=== PATIENT | male | born 1935 | race Caucasian/White ===

== ENCOUNTER 2017-11-29 11:40 | Inpatient (IN) | payer MEDICARE, OTHER ==
[~2017-11-29] VITALS: Ht 175.3 cm; Wt 90.0 kg
[2017-11-29] VITALS (9 sets, daily range): BP systolic 97–128; BP diastolic 45–64
[~2017-11-29 11:40] MED LIST: ADV50250 IH; ALBU8HFA PO; ATOR80TA PO; COR3.125T PO; FURO-150 PO; FURO40TA4 PO; ISOS30TA9 PO; ISOS60TA4 PO; MONT10TA24 PO; POTA10CA44 PO; TIOT18CA7 IH; carvedilol; etomidate 2mg/ml inj. ONE; potassium chloride; prednisone; rocuronium 10mg/ml inj IV ONE; spironolactone
[2017-11-29] MEDS ORDERED: fentaNYL/PF 50MCG/1 ML 2ML syringe IV ONE (11:55)
[2017-11-29] MEDS ORDERED: etomidate 2mg/ml inj. IV ONE (11:55)
[2017-11-29] MEDS ORDERED: rocuronium 10mg/ml inj IV ONE (11:55)
[2017-11-29] MEDS ORDERED: propofol 1000mg/100ml bottle 100 ML IV ONE (11:55)
[2017-11-29] MEDS ORDERED: MIDAZolam 5mg/ml 2ml vial IV ONE (11:55)
[2017-11-29] MEDS ORDERED: dexamethasone sod phosphate 10mg/ml inj IV STA (12:28)
[2017-11-29] MEDS: midazolam 100mg in NS 100ml 100 ML IV PRN ×4 (12:36→23:47)
[2017-11-29 12:37] LABS: BASOPHILS % (AUTO) 0.1 % (0-1); EOSINOPHILS # (AUTO) 0.1 X10'3 (0-0.9); EOSINOPHILS % (AUTO) 0.4 % (0-6); HEMATOCRIT 35.7 % (42.0-52.0); HEMOGLOBIN 11.6 g/dl (14.0-17.9); LYMPHOCYTES # (AUTO) 0.8 X10'3 (1.1-4.8); LYMPHOCYTES % (AUTO) 4.1 % (21-51); MEAN CORPUSCULAR HEMOGLOBIN 31.9 PG (27.0-31.0); MEAN CORPUSCULAR HGB CONC 32.6 % (33.0-36.5); MEAN PLATELET VOLUME 7.6 FL (7.4-10.4); MONOCYTES # (AUTO) 0.8 X10'3 (0-0.9); MONOCYTES % (AUTO) 3.7 % (2-12); NEUTROPHILS # (AUTO) 18.5 X10'3 (1.8-7.7); NEUTROPHILS % (AUTO) 91.7 % (42-75); PLATELET COUNT 343 X10'3 (140-440); RED BLOOD COUNT 3.64 X10'6 (4.70-6.10); RED CELL DISTRIBUTION WIDTH 13.7 % (11.5-14.5); WHITE BLOOD COUNT 20.2 X10'3 (4.5-11.0)
[2017-11-29 12:43] LABS: INR 0.9 INR; PARTIAL THROMBOPLASTIN TIME 23 SECONDS (22-32); PROTHROMBIN TIME 9.8 SECONDS (9.0-12.0)
[2017-11-29 12:51] LABS: ABG BASE EXCESS 14.9 mmol/L (-2.0-3.0); ABG HCO3 41.5 mmol/L (22.0-26.0); ABG OXYGEN SATURATION 95.6 % (95-98); ABG PCO2 (T) 59.9 mmHg (35.0-48.0); ABG PH (T) 7.458 (7.350-7.450); ABG PO2 (T) 71.7 mmHg (83-108); ALLEN'S TEST Positive; FCOHb 0.4 % (0.5-1.5); FMetHb 0.2 % (0.3-1.12); PEEP 5 cm H2O; RESPIRATORY RATE 20 b/min; TIDAL VOLUME 450 mL; TOTAL HEMOGLOBIN 12.6 G/dl (14.0-18.0)
[2017-11-29 12:58] LABS: ALANINE AMINOTRANSFERASE 18 U/L (12-78); ALBUMIN 2.2 G/DL (3.4-5.0); ALBUMIN/GLOBULIN RATIO 0.4 (1.1-1.5); ALKALINE PHOSPHATASE 80 IU/L (46-116); ANION GAP 3 (8-16); ASPARTATE AMINO TRANSFERASE 18 U/L (10-37); BILIRUBIN,TOTAL 0.3 MG/DL (0.1-1.0); BLOOD UREA NITROGEN 15 MG/DL (7-18); BUN/CREATININE RATIO 27.8 (5.4-32.0); CALCIUM 8.9 MG/DL (8.5-10.1); CHLORIDE 94 MMOL/L (99-107); CREATININE 0.54 MG/DL (0.60-1.10); GLUCOSE 179 MG/DL (70-104); POTASSIUM 4.2 MMOL/L (3.5-5.1); SODIUM 136 MMOL/L (135-145); TOTAL CARBON DIOXIDE 39.1 MMOL/L (24-32); TOTAL PROTEIN 7.1 G/DL (6.4-8.2); eGFR > 90 ML/MIN
[2017-11-29 13:10] LABS: TOTAL CELLS COUNTED 100
[2017-11-29 13:11] LABS: PLATELET ESTIMATE NORMAL; TOXIC GRANULATION 1+
[2017-11-29 13:35] LABS: CLARITY,URINE CLEAR (Clear); COLOR,URINE YELLOW (Yellow); GLUCOSE, URINE NEGATIVE (Neg); KETONES,URINE NEGATIVE (Neg); LEUKOCYTE ESTERASE ,URINE NEGATIVE (Neg); NITRITES, URINE NEGATIVE (Neg); OCCULT BLOOD,URINE NEGATIVE (Neg); PH,URINE 6.5 (4.8-8.0); PROTEIN,URINE NEGATIVE (Neg)
[2017-11-29 13:37] LABS: UA COLLECTION TYPE FOLEY CATH
[2017-11-29] MEDS ORDERED: metoclopramide 5 mg/ml inj IV PRN (13:40)
[2017-11-29] MEDS ORDERED: Neutra Phos packet PO PRN (13:40)
[2017-11-29] MEDS ORDERED: magnesium 4gm in 100ml NS 100 ML IV PRN (13:40)
[2017-11-29] MEDS ORDERED: magnesium Cl slow-release 64mg tablet PO PRN (13:40)
[2017-11-29] MEDS ORDERED: morphine 2 MG/ML inj. syringe IV PRN ×2 (13:40)
[2017-11-29] MEDS ORDERED: sodium phosphate inj. 15 MMOL in dextrose 5%-water 150 ML IV PRN (13:40)
[2017-11-29] MEDS ORDERED: ondansetron/PF 4mg/2ml inj IV PRN (13:40)
[2017-11-29] MEDS ORDERED: acetaminophen 325mg tablet PO PRN (13:40)
[2017-11-29] MEDS ORDERED: magnesium hydroxide 30ml (MOM) UD suspension PO PRN (13:40)
[2017-11-29] MEDS ORDERED: sodium phosphate inj. 30 MMOL in dextrose 5%-water 250 ML IV PRN (13:40)
[2017-11-29] MEDS: K, MAG and/or Phos replacement - Verify level? MC SCH (13:40)
[2017-11-29] MEDS ORDERED: magnesium 2GM in 50ml NS 50 ML IV PRN (13:40)
[2017-11-29] MEDS ORDERED: potassium Cl 20 mEq SR tablet PO PRN ×2 (13:40)
[2017-11-29] MEDS ORDERED: methylPREDNISolone sod succ 125mg/2ml vial IV ONE (14:00)
[2017-11-29] MEDS ORDERED: PRED5TAB PO (14:01)
[2017-11-29] MEDS ORDERED: SPIR50TA3 PO (14:01)
[2017-11-29 14:18] LABS: D-DIMER 2.16 MG/L FEU (0-0.50)
[2017-11-29] MEDS: FENTANYL-0.9 % NACL/PF 100 ML IV PRN (14:30)
[2017-11-29 14:51] LABS: ABG PCO2 (T) 63.6 mmHg (35.0-48.0); ABG PH (T) 7.406 (7.350-7.450); ABG PO2 (T) 87.5 mmHg (83-108); FCOHb 0.3 % (0.5-1.5); FMetHb 0.2 % (0.3-1.12); FO2Hb 96.5 % (94-100); MINUTE VOLUME 6 L/min; PEEP 5 cm H2O; RESPIRATORY RATE 12 b/min; RESPIRATORY RATE (OBSERVED) 12 b/min; TOTAL HEMOGLOBIN 11.9 G/dl (14.0-18.0)
[2017-11-29] MEDS: levoFLOXACIN-Levaquin 750MG/D5 150 ML IV SCH (15:05)
[2017-11-29] MEDS: CefTRIAXone 2gm/D5W 50ml ADVTG 50 ML IV SCH (15:06)
[2017-11-29] MEDS: enoxaparin 40mg/0.4ml syringe SUBCUT SCH (15:06)
[2017-11-29 15:15] LABS: OXYGEN SATURATION (MIXED VEN) 79.2 % (60-80); PO2 MIXED VENOUS (TEMP COR) 39.9 mmHg (35-46)
[2017-11-29 15:42] LABS: MAGNESIUM 2.1 MG/DL (1.5-2.4)
[2017-11-29] MEDS ORDERED: FLU VACC QS2017-18 36MOS UP/PF 60 MCG/0.5 ML SYRINGE IMVAC ONE (15:55)
[2017-11-29] MEDS ORDERED: NORepinephrine 8mg/ 250ml NS 250 ML IV SCH ×2 (15:55→16:10)
[2017-11-29] MEDS: montelukast 10mg tablet PO SCH (20:00)
[2017-11-30] VITALS (23 sets, daily range): BP systolic 98–118; BP diastolic 50–64
[2017-11-30 03:28] LABS: BASOPHILS # (AUTO) 0.4 X10'3 (0-0.2); BASOPHILS % (AUTO) 1.7 % (0-1); EOSINOPHILS % (AUTO) 0 % (0-6); HEMATOCRIT 33.3 % (42.0-52.0); HEMOGLOBIN 10.9 g/dl (14.0-17.9); LYMPHOCYTES # (AUTO) 0.9 X10'3 (1.1-4.8); LYMPHOCYTES % (AUTO) 4.4 % (21-51); MEAN CORPUSCULAR HEMOGLOBIN 31.9 PG (27.0-31.0); MEAN CORPUSCULAR HGB CONC 32.6 % (33.0-36.5); MEAN CORPUSCULAR VOLUME 97.8 FL (78-98); MEAN PLATELET VOLUME 7.4 FL (7.4-10.4); MONOCYTES # (AUTO) 0.3 X10'3 (0-0.9); MONOCYTES % (AUTO) 1.7 % (2-12); NEUTROPHILS # (AUTO) 18.6 X10'3 (1.8-7.7); NEUTROPHILS % (AUTO) 92.2 % (42-75); PLATELET COUNT 332 X10'3 (140-440); RED CELL DISTRIBUTION WIDTH 13.8 % (11.5-14.5); WHITE BLOOD COUNT 20.2 X10'3 (4.5-11.0)
[2017-11-30 03:37] LABS: PARTIAL THROMBOPLASTIN TIME 29 SECONDS (22-32); PROTHROMBIN TIME 10.8 SECONDS (9.0-12.0)
[2017-11-30 03:45] LABS: ALANINE AMINOTRANSFERASE 16 U/L (12-78); ALBUMIN 1.8 G/DL (3.4-5.0); ALBUMIN/GLOBULIN RATIO 0.4 (1.1-1.5); ALKALINE PHOSPHATASE 73 IU/L (46-116); ANION GAP -1 (8-16); ASPARTATE AMINO TRANSFERASE 13 U/L (10-37); BILIRUBIN,TOTAL 0.2 MG/DL (0.1-1.0); BLOOD UREA NITROGEN 15 MG/DL (7-18); BUN/CREATININE RATIO 27.8 (5.4-32.0); CALCIUM 8.7 MG/DL (8.5-10.1); CHLORIDE 96 MMOL/L (99-107); CREATININE 0.54 MG/DL (0.60-1.10); GLUCOSE 173 MG/DL (70-104); MAGNESIUM 2.2 MG/DL (1.5-2.4); PHOSPHORUS 3.6 MG/DL (2.3-4.5); POTASSIUM 4.4 MMOL/L (3.5-5.1); SODIUM 135 MMOL/L (135-145); TOTAL CARBON DIOXIDE 39.6 MMOL/L (24-32); TOTAL PROTEIN 6.4 G/DL (6.4-8.2); eGFR > 90 ML/MIN
[2017-11-30 04:05] LABS: ABG BASE EXCESS 13.4 mmol/L (-2.0-3.0); ABG HCO3 40.4 mmol/L (22.0-26.0); ABG OXYGEN SATURATION 92.5 % (95-98); ABG PCO2 (T) 63.4 mmHg (35.0-48.0); ABG PH (T) 7.421 (7.350-7.450); ABG PO2 (T) 60.1 mmHg (83-108); FCOHb 0.3 % (0.5-1.5); FMetHb 0.1 % (0.3-1.12); FO2Hb 92.1 % (94-100); MINUTE VOLUME 6 L/min; PATIENT TEMPERATURE 36.7; PEEP 5 cm H2O; RESPIRATORY RATE 12 b/min; RESPIRATORY RATE (OBSERVED) 12 b/min; TIDAL VOLUME 450 mL; TOTAL HEMOGLOBIN 11.7 G/dl (14.0-18.0)
[2017-11-30] MEDS: K, MAG and/or Phos replacement - Verify level? MC SCH (06:41)
[2017-11-30] MEDS: CefTRIAXone 2gm/D5W 50ml ADVTG 50 ML IV SCH (07:05)
[2017-11-30] MEDS ORDERED: potassium chloride 10mEq CAPSULE.SA PO SCH (08:00)
[2017-11-30] MEDS ORDERED: montelukast 10mg tablet PO SCH (08:00)
[2017-11-30] MEDS: FENTANYL-0.9 % NACL/PF 100 ML IV PRN (08:26)
[2017-11-30] MEDS: enoxaparin 40mg/0.4ml syringe SUBCUT SCH (08:27)
[2017-11-30] MEDS: pantoprazole 40 MG vial IV SCH (08:27)
[2017-11-30] MEDS: montelukast 10mg tablet PO SCH (08:27)
[2017-11-30] MEDS: levoFLOXACIN-Levaquin 750MG/D5 150 ML IV SCH (08:30)
[2017-11-30] MEDS ORDERED: potassium Cl oral solution 20 MEQ/15 ML PO PRN ×2 (08:52)
[2017-11-30] MEDS ORDERED: dextrose 50%-water 50ml dispensing syringe IV PRN ×2 (10:50)
[2017-11-30] MEDS ORDERED: dextrose ORAL solution 15 GM/59 ML bottle PO PRN ×2 (10:50)
[2017-11-30] MEDS ORDERED: MESSAGE TO PHARMACY PO ONE (10:50)
[2017-11-30] MEDS ORDERED: glucagon, human recombinant 1mg kit SUBCUT PRN (10:50)
[2017-11-30] MEDS: methylnaltrexone br 12mg/0.6ml inj***SubQ only SQ SCH ×2 (11:00→11:30)
[2017-11-30] MEDS: linezolid 600mg/300ml PREMIX 300 ML IV SCH ×2 (11:20→20:07)
[2017-11-30] MEDS ORDERED: NORepinephrine 8mg/ 250ml NS 250 ML IV SCH (15:55)
[2017-11-30] MEDS: midazolam 100mg in NS 100ml 100 ML IV PRN (18:05)
[2017-11-30] MEDS: insulin regular, human vial - multi-dose SQ SCH (20:11)
[2017-11-30] MEDS: Insulin Detemir pen SQ SCH (20:13)
[2017-12-01] VITALS (24 sets, daily range): BP systolic 94–130; BP diastolic 40–56
[2017-12-01] MEDS: insulin regular, human vial - multi-dose SQ SCH ×4 (02:37→20:11)
[2017-12-01 03:22] LABS: BASOPHILS % (AUTO) 0.1 % (0-1); EOSINOPHILS # (AUTO) 0.4 X10'3 (0-0.9); EOSINOPHILS % (AUTO) 1.5 % (0-6); HEMOGLOBIN 10.9 g/dl (14.0-17.9); LYMPHOCYTES # (AUTO) 1.1 X10'3 (1.1-4.8); LYMPHOCYTES % (AUTO) 4.8 % (21-51); MEAN CORPUSCULAR HEMOGLOBIN 31.7 PG (27.0-31.0); MEAN CORPUSCULAR VOLUME 96.1 FL (78-98); MEAN PLATELET VOLUME 7.2 FL (7.4-10.4); MONOCYTES # (AUTO) 0.8 X10'3 (0-0.9); MONOCYTES % (AUTO) 3.5 % (2-12); NEUTROPHILS # (AUTO) 21.5 X10'3 (1.8-7.7); NEUTROPHILS % (AUTO) 90.1 % (42-75); PLATELET COUNT 332 X10'3 (140-440); RED BLOOD COUNT 3.43 X10'6 (4.70-6.10); RED CELL DISTRIBUTION WIDTH 13.5 % (11.5-14.5); WHITE BLOOD COUNT 23.9 X10'3 (4.5-11.0)
[2017-12-01 03:36] LABS: INR 1.1 INR; PARTIAL THROMBOPLASTIN TIME 28 SECONDS (22-32); PROTHROMBIN TIME 10.9 SECONDS (9.0-12.0)
[2017-12-01 03:39] LABS: ALANINE AMINOTRANSFERASE 17 U/L (12-78); ALBUMIN 1.7 G/DL (3.4-5.0); ALBUMIN/GLOBULIN RATIO 0.4 (1.1-1.5); ALKALINE PHOSPHATASE 66 IU/L (46-116); ANION GAP 2 (8-16); ASPARTATE AMINO TRANSFERASE 12 U/L (10-37); BILIRUBIN,TOTAL 0.2 MG/DL (0.1-1.0); BLOOD UREA NITROGEN 16 MG/DL (7-18); BUN/CREATININE RATIO 28.6 (5.4-32.0); CALCIUM 8.6 MG/DL (8.5-10.1); CHLORIDE 96 MMOL/L (99-107); CREATININE 0.56 MG/DL (0.60-1.10); GLUCOSE 182 MG/DL (70-104); MAGNESIUM 2.4 MG/DL (1.5-2.4); PHOSPHORUS 3.2 MG/DL (2.3-4.5); POTASSIUM 4.3 MMOL/L (3.5-5.1); SODIUM 134 MMOL/L (135-145); TOTAL CARBON DIOXIDE 35.6 MMOL/L (24-32); TOTAL PROTEIN 6.1 G/DL (6.4-8.2); eGFR > 90 ML/MIN
[2017-12-01 04:16] LABS: ABG BASE EXCESS 9.8 mmol/L (-2.0-3.0); ABG HCO3 35.9 mmol/L (22.0-26.0); ABG OXYGEN SATURATION 95.1 % (95-98); ABG PCO2 (T) 54.2 mmHg (35.0-48.0); ABG PH (T) 7.436 (7.350-7.450); ABG PO2 (T) 70.1 mmHg (83-108); FCOHb 0.3 % (0.5-1.5); FMetHb 0.1 % (0.3-1.12); FO2Hb 94.7 % (94-100); MINUTE VOLUME 7 L/min; PATIENT TEMPERATURE 36.5; PEEP 5 cm H2O; RESPIRATORY RATE 14 b/min; RESPIRATORY RATE (OBSERVED) 14 b/min; TIDAL VOLUME 450 mL; TOTAL HEMOGLOBIN 11.9 G/dl (14.0-18.0)
[2017-12-01] MEDS: FENTANYL-0.9 % NACL/PF 100 ML IV PRN (07:05)
[2017-12-01 07:41] LABS: TOTAL CELLS COUNTED 100
[2017-12-01 07:43] LABS: PLATELET ESTIMATE NORMAL; TOXIC GRANULATION 1+
[2017-12-01] MEDS: K, MAG and/or Phos replacement - Verify level? MC SCH (08:00)
[2017-12-01] MEDS: CefTRIAXone 2gm/D5W 50ml ADVTG 50 ML IV SCH (08:19)
[2017-12-01] MEDS: linezolid 600mg/300ml PREMIX 300 ML IV SCH (08:19)
[2017-12-01] MEDS: potassium Cl oral solution 20 MEQ/15 ML PO SCH (08:22)
[2017-12-01] MEDS: pantoprazole 40 MG vial IV SCH (08:22)
[2017-12-01] MEDS: mineral oil/petrolatum ophthal oint EACHEYE SCH ×3 (08:23→20:07)
[2017-12-01] MEDS: enoxaparin 40mg/0.4ml syringe SUBCUT SCH (08:23)
[2017-12-01] MEDS: montelukast 10mg tablet PO SCH (08:23)
[2017-12-01] MEDS: LACTOBACILLUS RHAMNOSUS GG 15 billion unit sprinkle caps PO SCH (08:23)
[2017-12-01 08:43] LABS: HEMOGLOBIN A1C 6.8 % (4.5-6.2)
[2017-12-01] MEDS ORDERED: normal saline 1000ml 1,000 ML IV ONE (11:45)
[2017-12-01] MEDS: normal saline 1000ml 1,000 ML IV SCH ×2 (12:14→20:07)
[2017-12-01] MEDS: midazolam 100mg in NS 100ml 100 ML IV PRN (12:20)
[2017-12-01 13:16] LABS: ABG BASE EXCESS 3.3 mmol/L (-2.0-3.0); ABG HCO3 28.8 mmol/L (22.0-26.0); ABG OXYGEN SATURATION 95.5 % (95-98); ABG PCO2 (T) 47.7 mmHg (35.0-48.0); ABG PH (T) 7.399 (7.350-7.450); ABG PO2 (T) 78.1 mmHg (83-108); FCOHb 0.3 % (0.5-1.5); FMetHb 0.3 % (0.3-1.12); FO2Hb 94.9 % (94-100); MINUTE VOLUME 7 L/min; PEEP 5 cm H2O; RESPIRATORY RATE 14 b/min; RESPIRATORY RATE (OBSERVED) 14 b/min; TOTAL HEMOGLOBIN 11.7 G/dl (14.0-18.0)
[2017-12-01] MEDS: Insulin Detemir pen SQ SCH (20:12)
[2017-12-02] VITALS (24 sets, daily range): BP systolic 100–147; BP diastolic 44–79
[2017-12-02] MEDS: mineral oil/petrolatum ophthal oint EACHEYE SCH ×4 (01:56→20:55)
[2017-12-02] MEDS: insulin regular, human vial - multi-dose SQ SCH ×4 (01:59→21:11)
[2017-12-02] MEDS: midazolam 100mg in NS 100ml 100 ML IV PRN ×2 (02:56→17:46)
[2017-12-02] MEDS: FENTANYL-0.9 % NACL/PF 100 ML IV PRN (02:57)
[2017-12-02 03:05] LABS: PARTIAL THROMBOPLASTIN TIME 27 SECONDS (22-32); PROTHROMBIN TIME 10.4 SECONDS (9.0-12.0)
[2017-12-02 03:08] LABS: ALANINE AMINOTRANSFERASE 12 U/L (12-78); ALBUMIN 1.6 G/DL (3.4-5.0); ALBUMIN/GLOBULIN RATIO 0.3 (1.1-1.5); ALKALINE PHOSPHATASE 63 IU/L (46-116); ANION GAP 2 (8-16); ASPARTATE AMINO TRANSFERASE 11 U/L (10-37); BILIRUBIN,TOTAL 0.2 MG/DL (0.1-1.0); BLOOD UREA NITROGEN 17 MG/DL (7-18); BUN/CREATININE RATIO 35.4 (5.4-32.0); CALCIUM 8.3 MG/DL (8.5-10.1); CHLORIDE 102 MMOL/L (99-107); CREATININE 0.48 MG/DL (0.60-1.10); GLUCOSE 159 MG/DL (70-104); MAGNESIUM 2.1 MG/DL (1.5-2.4); PHOSPHORUS 2.9 MG/DL (2.3-4.5); POTASSIUM 4.3 MMOL/L (3.5-5.1); SODIUM 137 MMOL/L (135-145); TOTAL CARBON DIOXIDE 33.2 MMOL/L (24-32); TOTAL PROTEIN 6.3 G/DL (6.4-8.2); eGFR > 90 ML/MIN
[2017-12-02 03:23] LABS: BASOPHILS # (AUTO) 0.1 X10'3 (0-0.2); BASOPHILS % (AUTO) 0.6 % (0-1); EOSINOPHILS % (AUTO) 0.2 % (0-6); HEMATOCRIT 34.9 % (42.0-52.0); HEMOGLOBIN 11.4 g/dl (14.0-17.9); LYMPHOCYTES # (AUTO) 1.6 X10'3 (1.1-4.8); LYMPHOCYTES % (AUTO) 8.1 % (21-51); MEAN CORPUSCULAR HEMOGLOBIN 31.5 PG (27.0-31.0); MEAN CORPUSCULAR HGB CONC 32.7 % (33.0-36.5); MEAN CORPUSCULAR VOLUME 96.5 FL (78-98); MEAN PLATELET VOLUME 7.5 FL (7.4-10.4); MONOCYTES # (AUTO) 0.6 X10'3 (0-0.9); MONOCYTES % (AUTO) 3.1 % (2-12); NEUTROPHILS # (AUTO) 17.3 X10'3 (1.8-7.7); PLATELET COUNT 350 X10'3 (140-440); RED BLOOD COUNT 3.61 X10'6 (4.70-6.10); WHITE BLOOD COUNT 19.6 X10'3 (4.5-11.0)
[2017-12-02 03:46] LABS: ABG BASE EXCESS 4.9 mmol/L (-2.0-3.0); ABG HCO3 31.4 mmol/L (22.0-26.0); ABG PCO2 (T) 55.4 mmHg (35.0-48.0); ABG PH (T) 7.372 (7.350-7.450); FCOHb 0.3 % (0.5-1.5); FMetHb 0.3 % (0.3-1.12); FO2Hb 93.4 % (94-100); PATIENT TEMPERATURE 37.2; PEEP 5 cm H2O; RESPIRATORY RATE 14 b/min; TIDAL VOLUME 450 mL; TOTAL HEMOGLOBIN 12.2 G/dl (14.0-18.0)
[2017-12-02] MEDS: normal saline 1000ml 1,000 ML IV SCH (04:22)
[2017-12-02] MEDS: K, MAG and/or Phos replacement - Verify level? MC SCH (06:29)
[2017-12-02] MEDS ORDERED: clopidogrel 300mg tablet PO ONE (07:50)
[2017-12-02] MEDS: pantoprazole 40 MG vial IV SCH (08:25)
[2017-12-02] MEDS: potassium Cl oral solution 20 MEQ/15 ML PO SCH (08:26)
[2017-12-02] MEDS: LACTOBACILLUS RHAMNOSUS GG 15 billion unit sprinkle caps PO SCH (08:26)
[2017-12-02] MEDS: CefTRIAXone 2gm/D5W 50ml ADVTG 50 ML IV SCH (08:26)
[2017-12-02] MEDS: methylnaltrexone br 12mg/0.6ml inj***SubQ only SQ SCH (08:26)
[2017-12-02] MEDS: enoxaparin 40mg/0.4ml syringe SUBCUT SCH (08:27)
[2017-12-02] MEDS: montelukast 10mg tablet PO SCH (08:33)
[2017-12-02] MEDS: Insulin Detemir pen SQ SCH (21:11)
[2017-12-03] VITALS (24 sets, daily range): BP systolic 90–149; BP diastolic 52–79
[2017-12-03] MEDS: mineral oil/petrolatum ophthal oint EACHEYE SCH ×4 (02:34→20:11)
[2017-12-03] MEDS: insulin regular, human vial - multi-dose SQ SCH ×3 (02:38→20:12)
[2017-12-03 02:52] LABS: BASOPHILS % (AUTO) 0 % (0-1); EOSINOPHILS # (AUTO) 0.3 X10'3 (0-0.9); EOSINOPHILS % (AUTO) 1.9 % (0-6); HEMOGLOBIN 12.1 g/dl (14.0-17.9); LYMPHOCYTES # (AUTO) 2.3 X10'3 (1.1-4.8); LYMPHOCYTES % (AUTO) 13.2 % (21-51); MEAN CORPUSCULAR HEMOGLOBIN 31.6 PG (27.0-31.0); MEAN CORPUSCULAR HGB CONC 32.6 % (33.0-36.5); MEAN CORPUSCULAR VOLUME 96.9 FL (78-98); MEAN PLATELET VOLUME 7.3 FL (7.4-10.4); MONOCYTES # (AUTO) 0.1 X10'3 (0-0.9); MONOCYTES % (AUTO) 0.5 % (2-12); NEUTROPHILS # (AUTO) 14.6 X10'3 (1.8-7.7); NEUTROPHILS % (AUTO) 84.4 % (42-75); PLATELET COUNT 333 X10'3 (140-440); RED BLOOD COUNT 3.82 X10'6 (4.70-6.10); RED CELL DISTRIBUTION WIDTH 14.1 % (11.5-14.5); WHITE BLOOD COUNT 17.3 X10'3 (4.5-11.0)
[2017-12-03 03:03] LABS: PARTIAL THROMBOPLASTIN TIME 27 SECONDS (22-32); PROTHROMBIN TIME 10.6 SECONDS (9.0-12.0)
[2017-12-03 03:20] LABS: ALANINE AMINOTRANSFERASE 15 U/L (12-78); ALBUMIN 1.7 G/DL (3.4-5.0); ALBUMIN/GLOBULIN RATIO 0.4 (1.1-1.5); ALKALINE PHOSPHATASE 66 IU/L (46-116); ANION GAP 3 (8-16); ASPARTATE AMINO TRANSFERASE 12 U/L (10-37); BILIRUBIN,TOTAL 0.2 MG/DL (0.1-1.0); BLOOD UREA NITROGEN 21 MG/DL (7-18); BUN/CREATININE RATIO 35.6 (5.4-32.0); CALCIUM 8.5 MG/DL (8.5-10.1); CHLORIDE 99 MMOL/L (99-107); CREATININE 0.59 MG/DL (0.60-1.10); GLUCOSE 168 MG/DL (70-104); PHOSPHORUS 3.5 MG/DL (2.3-4.5); POTASSIUM 4.3 MMOL/L (3.5-5.1); PREALBUMIN 18.1 MG/DL (19-36); SODIUM 137 MMOL/L (135-145); TOTAL CARBON DIOXIDE 34.8 MMOL/L (24-32); TOTAL PROTEIN 6.3 G/DL (6.4-8.2); eGFR > 90 ML/MIN
[2017-12-03 04:01] LABS: ABG HCO3 33.2 mmol/L (22.0-26.0); ABG OXYGEN SATURATION 94.1 % (95-98); ABG PCO2 (T) 60.4 mmHg (35.0-48.0); ABG PH (T) 7.358 (7.350-7.450); ABG PO2 (T) 67.2 mmHg (83-108); ALLEN'S TEST Positive; FCOHb 0.3 % (0.5-1.5); FO2Hb 93.8 % (94-100); MINUTE VOLUME 9 L/min; PEEP 5 cm H2O; RESPIRATORY RATE 16 b/min; RESPIRATORY RATE (OBSERVED) 19 b/min; TIDAL VOLUME 450 mL; TOTAL HEMOGLOBIN 12.5 G/dl (14.0-18.0)
[2017-12-03] MEDS: K, MAG and/or Phos replacement - Verify level? MC SCH (08:00)
[2017-12-03] MEDS: LACTOBACILLUS RHAMNOSUS GG 15 billion unit sprinkle caps PO SCH (08:56)
[2017-12-03] MEDS: montelukast 10mg tablet PO SCH (08:56)
[2017-12-03] MEDS: CefTRIAXone 2gm/D5W 50ml ADVTG 50 ML IV SCH (08:57)
[2017-12-03] MEDS: pantoprazole 40 MG vial IV SCH (08:57)
[2017-12-03] MEDS: potassium Cl oral solution 20 MEQ/15 ML PO SCH (08:57)
[2017-12-03] MEDS: enoxaparin 40mg/0.4ml syringe SUBCUT SCH (08:58)
[2017-12-03] MEDS: FENTANYL-0.9 % NACL/PF 100 ML IV PRN (08:58)
[2017-12-03] MEDS: midazolam 100mg in NS 100ml 100 ML IV PRN (08:58)
[2017-12-03] MEDS: ipratropium/albuterol 3ml nebule NEB PRN (16:20)
[2017-12-03] MEDS: Insulin Detemir pen SQ SCH (20:13)
[2017-12-04] VITALS (24 sets, daily range): BP systolic 84–131; BP diastolic 57–71
[2017-12-04 02:04] LABS: BASOPHILS % (AUTO) 0.1 % (0-1); EOSINOPHILS # (AUTO) 0.3 X10'3 (0-0.9); EOSINOPHILS % (AUTO) 1.7 % (0-6); HEMATOCRIT 34.6 % (42.0-52.0); HEMOGLOBIN 11.4 g/dl (14.0-17.9); LYMPHOCYTES # (AUTO) 1.8 X10'3 (1.1-4.8); LYMPHOCYTES % (AUTO) 9.3 % (21-51); MEAN CORPUSCULAR HEMOGLOBIN 31.9 PG (27.0-31.0); MEAN CORPUSCULAR HGB CONC 32.9 % (33.0-36.5); MEAN CORPUSCULAR VOLUME 96.8 FL (78-98); MEAN PLATELET VOLUME 7.6 FL (7.4-10.4); MONOCYTES # (AUTO) 0.1 X10'3 (0-0.9); MONOCYTES % (AUTO) 0.7 % (2-12); NEUTROPHILS % (AUTO) 88.2 % (42-75); PLATELET COUNT 293 X10'3 (140-440); RED BLOOD COUNT 3.57 X10'6 (4.70-6.10); RED CELL DISTRIBUTION WIDTH 14.6 % (11.5-14.5); WHITE BLOOD COUNT 19.3 X10'3 (4.5-11.0)
[2017-12-04] MEDS: mineral oil/petrolatum ophthal oint EACHEYE SCH ×4 (02:12→20:15)
[2017-12-04 02:15] LABS: PARTIAL THROMBOPLASTIN TIME 28 SECONDS (22-32); PROTHROMBIN TIME 10.4 SECONDS (9.0-12.0)
[2017-12-04] MEDS: insulin regular, human vial - multi-dose SQ SCH ×4 (02:15→20:20)
[2017-12-04 02:16] LABS: ALANINE AMINOTRANSFERASE 17 U/L (12-78); ALBUMIN 1.7 G/DL (3.4-5.0); ALBUMIN/GLOBULIN RATIO 0.4 (1.1-1.5); ALKALINE PHOSPHATASE 55 IU/L (46-116); ANION GAP -2 (8-16); ASPARTATE AMINO TRANSFERASE 12 U/L (10-37); BILIRUBIN,TOTAL 0.2 MG/DL (0.1-1.0); BLOOD UREA NITROGEN 28 MG/DL (7-18); BUN/CREATININE RATIO 52.8 (5.4-32.0); CALCIUM 8.4 MG/DL (8.5-10.1); CHLORIDE 98 MMOL/L (99-107); CREATININE 0.53 MG/DL (0.60-1.10); GLUCOSE 161 MG/DL (70-104); MAGNESIUM 2.2 MG/DL (1.5-2.4); PHOSPHORUS 3.7 MG/DL (2.3-4.5); POTASSIUM 4.7 MMOL/L (3.5-5.1); SODIUM 133 MMOL/L (135-145); TOTAL CARBON DIOXIDE 36.8 MMOL/L (24-32); TOTAL PROTEIN 6.2 G/DL (6.4-8.2); eGFR > 90 ML/MIN
[2017-12-04 02:51] LABS: TOTAL CELLS COUNTED 100
[2017-12-04 02:52] LABS: PLATELET ESTIMATE NORMAL
[2017-12-04 05:16] LABS: ABG BASE EXCESS 6.7 mmol/L (-2.0-3.0); ABG OXYGEN SATURATION 93.3 % (95-98); ABG PCO2 (T) 56.3 mmHg (35.0-48.0); ABG PH (T) 7.388 (7.350-7.450); ABG PO2 (T) 68.6 mmHg (83-108); ALLEN'S TEST Positive; FCOHb 0.3 % (0.5-1.5); FMetHb 0.1 % (0.3-1.12); FO2Hb 92.9 % (94-100); MINUTE VOLUME 8 L/min; PATIENT TEMPERATURE 37.4; PEEP 5 cm H2O; RESPIRATORY RATE 12 b/min; RESPIRATORY RATE (OBSERVED) 12 b/min; TIDAL VOLUME 600 mL; TOTAL HEMOGLOBIN 12.2 G/dl (14.0-18.0)
[2017-12-04] MEDS: midazolam 100mg in NS 100ml 100 ML IV PRN (05:19)
[2017-12-04] MEDS: potassium Cl oral solution 20 MEQ/15 ML PO SCH (08:00)
[2017-12-04] MEDS: K, MAG and/or Phos replacement - Verify level? MC SCH (08:00)
[2017-12-04] MEDS: enoxaparin 40mg/0.4ml syringe SUBCUT SCH (08:35)
[2017-12-04] MEDS: pantoprazole 40 MG vial IV SCH (08:36)
[2017-12-04] MEDS: CefTRIAXone 2gm/D5W 50ml ADVTG 50 ML IV SCH (08:36)
[2017-12-04] MEDS: methylnaltrexone br 12mg/0.6ml inj***SubQ only SQ SCH (08:37)
[2017-12-04] MEDS: montelukast 10mg tablet PO SCH (08:37)
[2017-12-04] MEDS: LACTOBACILLUS RHAMNOSUS GG 15 billion unit sprinkle caps PO SCH (08:37)
[2017-12-04] MEDS ORDERED: bisacodyl 10mg suppository rectal RC STA (10:30)
[2017-12-04] MEDS: ipratropium/albuterol 3ml nebule NEB PRN ×2 (11:35→16:55)
[2017-12-04] MEDS: dexmedetomidin/NS 400mcg/100ml 100 ML IV SCH (11:41)
[2017-12-04] MEDS: Insulin Detemir pen SQ SCH (20:20)
[2017-12-05] VITALS (24 sets, daily range): BP systolic 113–156; BP diastolic 63–81
[2017-12-05] MEDS: mineral oil/petrolatum ophthal oint EACHEYE SCH ×4 (02:06→20:20)
[2017-12-05] MEDS: insulin regular, human vial - multi-dose SQ SCH ×4 (02:07→20:23)
[2017-12-05 02:59] LABS: BASOPHILS % (AUTO) 0 % (0-1); EOSINOPHILS # (AUTO) 0.6 X10'3 (0-0.9); EOSINOPHILS % (AUTO) 2.9 % (0-6); HEMATOCRIT 35.3 % (42.0-52.0); HEMOGLOBIN 11.5 g/dl (14.0-17.9); LYMPHOCYTES # (AUTO) 1.6 X10'3 (1.1-4.8); LYMPHOCYTES % (AUTO) 8.3 % (21-51); MEAN CORPUSCULAR HEMOGLOBIN 31.8 PG (27.0-31.0); MEAN CORPUSCULAR HGB CONC 32.7 % (33.0-36.5); MEAN CORPUSCULAR VOLUME 97.3 FL (78-98); MEAN PLATELET VOLUME 7.8 FL (7.4-10.4); MONOCYTES # (AUTO) 0.6 X10'3 (0-0.9); MONOCYTES % (AUTO) 2.9 % (2-12); NEUTROPHILS # (AUTO) 16.9 X10'3 (1.8-7.7); NEUTROPHILS % (AUTO) 85.9 % (42-75); PLATELET COUNT 282 X10'3 (140-440); RED BLOOD COUNT 3.62 X10'6 (4.70-6.10); RED CELL DISTRIBUTION WIDTH 14.2 % (11.5-14.5); WHITE BLOOD COUNT 19.7 X10'3 (4.5-11.0)
[2017-12-05 03:10] LABS: PARTIAL THROMBOPLASTIN TIME 29 SECONDS (22-32); PROTHROMBIN TIME 10.5 SECONDS (9.0-12.0)
[2017-12-05 03:37] LABS: ALANINE AMINOTRANSFERASE 15 U/L (12-78); ALBUMIN 1.7 G/DL (3.4-5.0); ALBUMIN/GLOBULIN RATIO 0.4 (1.1-1.5); ALKALINE PHOSPHATASE 54 IU/L (46-116); ANION GAP 0 (8-16); ASPARTATE AMINO TRANSFERASE 14 U/L (10-37); BILIRUBIN,TOTAL 0.2 MG/DL (0.1-1.0); BLOOD UREA NITROGEN 21 MG/DL (7-18); BUN/CREATININE RATIO 52.5 (5.4-32.0); CALCIUM 8.6 MG/DL (8.5-10.1); CHLORIDE 99 MMOL/L (99-107); GLUCOSE 141 MG/DL (70-104); MAGNESIUM 2.2 MG/DL (1.5-2.4); PHOSPHORUS 3.6 MG/DL (2.3-4.5); POTASSIUM 4.6 MMOL/L (3.5-5.1); SODIUM 134 MMOL/L (135-145); TOTAL CARBON DIOXIDE 34.9 MMOL/L (24-32); TOTAL PROTEIN 6.4 G/DL (6.4-8.2); eGFR > 90 ML/MIN
[2017-12-05 03:40] LABS: TOTAL CELLS COUNTED 100
[2017-12-05 03:41] LABS: PLATELET ESTIMATE NORMAL; TOXIC GRANULATION 1+
[2017-12-05 04:36] LABS: ABG BASE EXCESS 5.8 mmol/L (-2.0-3.0); ABG HCO3 30.9 mmol/L (22.0-26.0); ABG OXYGEN SATURATION 92.9 % (95-98); ABG PCO2 (T) 48.5 mmHg (35.0-48.0); ABG PH (T) 7.425 (7.350-7.450); ABG PO2 (T) 67.1 mmHg (83-108); FCOHb 0.3 % (0.5-1.5); FMetHb 0.1 % (0.3-1.12); FO2Hb 92.5 % (94-100); MINUTE VOLUME 12 L/min; PATIENT TEMPERATURE 37.8; PEEP 5 cm H2O; RESPIRATORY RATE 12 b/min; RESPIRATORY RATE (OBSERVED) 18 b/min; TOTAL HEMOGLOBIN 12.3 G/dl (14.0-18.0)
[2017-12-05] MEDS ORDERED: CefTRIAXone 2gm/NS 100ml IVPB 100 ML IV ONE (07:36)
[2017-12-05] MEDS: LACTOBACILLUS RHAMNOSUS GG 15 billion unit sprinkle caps PO SCH (07:40)
[2017-12-05] MEDS: pantoprazole 40 MG vial IV SCH (07:41)
[2017-12-05] MEDS: montelukast 10mg tablet PO SCH (07:42)
[2017-12-05] MEDS: CefTRIAXone 2gm/D5W 50ml ADVTG 50 ML IV SCH (07:42)
[2017-12-05] MEDS: enoxaparin 40mg/0.4ml syringe SUBCUT SCH (07:43)
[2017-12-05] MEDS: dexmedetomidin/NS 400mcg/100ml 100 ML IV SCH (07:43)
[2017-12-05] MEDS: potassium Cl oral solution 20 MEQ/15 ML PO SCH (07:43)
[2017-12-05] MEDS: K, MAG and/or Phos replacement - Verify level? MC SCH (08:00)
[2017-12-05] MEDS: Insulin Detemir pen SQ SCH (20:24)
[2017-12-06] VITALS (24 sets, daily range): BP systolic 105–155; BP diastolic 47–89
[2017-12-06] MEDS: mineral oil/petrolatum ophthal oint EACHEYE SCH ×4 (03:07→20:31)
[2017-12-06] MEDS: insulin regular, human vial - multi-dose SQ SCH ×4 (03:09→20:54)
[2017-12-06 03:31] LABS: BASOPHILS % (AUTO) 0 % (0-1); EOSINOPHILS # (AUTO) 0.4 X10'3 (0-0.9); EOSINOPHILS % (AUTO) 2.9 % (0-6); HEMATOCRIT 33.3 % (42.0-52.0); HEMOGLOBIN 10.9 g/dl (14.0-17.9); LYMPHOCYTES # (AUTO) 1.5 X10'3 (1.1-4.8); LYMPHOCYTES % (AUTO) 9.7 % (21-51); MEAN CORPUSCULAR HEMOGLOBIN 31.9 PG (27.0-31.0); MEAN CORPUSCULAR HGB CONC 32.9 % (33.0-36.5); MEAN PLATELET VOLUME 7.8 FL (7.4-10.4); MONOCYTES # (AUTO) 0.9 X10'3 (0-0.9); MONOCYTES % (AUTO) 5.5 % (2-12); NEUTROPHILS # (AUTO) 12.8 X10'3 (1.8-7.7); NEUTROPHILS % (AUTO) 81.9 % (42-75); PLATELET COUNT 286 X10'3 (140-440); RED BLOOD COUNT 3.43 X10'6 (4.70-6.10); RED CELL DISTRIBUTION WIDTH 14.5 % (11.5-14.5); WHITE BLOOD COUNT 15.6 X10'3 (4.5-11.0)
[2017-12-06 03:43] LABS: PARTIAL THROMBOPLASTIN TIME 29 SECONDS (22-32); PROTHROMBIN TIME 10.4 SECONDS (9.0-12.0)
[2017-12-06 03:47] LABS: ALANINE AMINOTRANSFERASE 15 U/L (12-78); ALBUMIN 1.8 G/DL (3.4-5.0); ALBUMIN/GLOBULIN RATIO 0.4 (1.1-1.5); ALKALINE PHOSPHATASE 53 IU/L (46-116); ANION GAP 1 (8-16); ASPARTATE AMINO TRANSFERASE 14 U/L (10-37); BILIRUBIN,TOTAL 0.2 MG/DL (0.1-1.0); BLOOD UREA NITROGEN 21 MG/DL (7-18); BUN/CREATININE RATIO 52.5 (5.4-32.0); CALCIUM 8.7 MG/DL (8.5-10.1); CHLORIDE 100 MMOL/L (99-107); GLUCOSE 130 MG/DL (70-104); MAGNESIUM 2.2 MG/DL (1.5-2.4); PHOSPHORUS 3.9 MG/DL (2.3-4.5); POTASSIUM 4.2 MMOL/L (3.5-5.1); PREALBUMIN 17.3 MG/DL (19-36); SODIUM 137 MMOL/L (135-145); TOTAL PROTEIN 6.5 G/DL (6.4-8.2); eGFR > 90 ML/MIN
[2017-12-06 04:00] LABS: ABG BASE EXCESS 7.4 mmol/L (-2.0-3.0); ABG HCO3 33.6 mmol/L (22.0-26.0); ABG OXYGEN SATURATION 92.9 % (95-98); ABG PCO2 (T) 54.5 mmHg (35.0-48.0); ABG PH (T) 7.407 (7.350-7.450); ABG PO2 (T) 64.7 mmHg (83-108); ALLEN'S TEST Positive; FMetHb 0.3 % (0.3-1.12); FO2Hb 92.6 % (94-100); MINUTE VOLUME 12 L/min; PATIENT TEMPERATURE 36.9; PEEP 5 cm H2O; RESPIRATORY RATE 12 b/min; RESPIRATORY RATE (OBSERVED) 20 b/min; TIDAL VOLUME 619 mL; TOTAL HEMOGLOBIN 11.9 G/dl (14.0-18.0)
[2017-12-06] MEDS: dexmedetomidin/NS 400mcg/100ml 100 ML IV SCH (04:56)
[2017-12-06] MEDS: K, MAG and/or Phos replacement - Verify level? MC SCH (08:00)
[2017-12-06] MEDS: LACTOBACILLUS RHAMNOSUS GG 15 billion unit sprinkle caps PO SCH (08:31)
[2017-12-06] MEDS: montelukast 10mg tablet PO SCH (08:31)
[2017-12-06] MEDS: CefTRIAXone 2gm/NS 100ml IVPB 100 ML IV SCH (08:32)
[2017-12-06] MEDS: pantoprazole 40 MG vial IV SCH (08:32)
[2017-12-06] MEDS: enoxaparin 40mg/0.4ml syringe SUBCUT SCH (08:33)
[2017-12-06] MEDS: methylnaltrexone br 12mg/0.6ml inj***SubQ only SQ SCH (08:33)
[2017-12-06] MEDS: potassium Cl oral solution 20 MEQ/15 ML PO SCH (08:34)
[2017-12-06] MEDS: midazolam 100mg in NS 100ml 100 ML IV PRN (12:12)
[2017-12-06] MEDS ORDERED: furosemide 40mg/4ml inj IV ONE (14:55)
[2017-12-06] MEDS: diatr meglu/diatrizoate 30ml oral sol.-(3 dose) bottle PO SCH (20:39)
[2017-12-06] MEDS: Insulin Detemir pen SQ SCH (21:00)
[2017-12-07] VITALS (23 sets, daily range): BP systolic 77–154; BP diastolic 53–80
[2017-12-07] MEDS: mineral oil/petrolatum ophthal oint EACHEYE SCH ×4 (02:00→20:21)
[2017-12-07] MEDS: dexmedetomidin/NS 400mcg/100ml 100 ML IV SCH ×2 (02:09→23:22)
[2017-12-07 03:34] LABS: PARTIAL THROMBOPLASTIN TIME 27 SECONDS (22-32); PROTHROMBIN TIME 10.4 SECONDS (9.0-12.0)
[2017-12-07 03:39] LABS: ALANINE AMINOTRANSFERASE 16 U/L (12-78); ALBUMIN 1.8 G/DL (3.4-5.0); ALBUMIN/GLOBULIN RATIO 0.4 (1.1-1.5); ALKALINE PHOSPHATASE 49 IU/L (46-116); ANION GAP 3 (8-16); ASPARTATE AMINO TRANSFERASE 14 U/L (10-37); BILIRUBIN,TOTAL 0.2 MG/DL (0.1-1.0); BLOOD UREA NITROGEN 28 MG/DL (7-18); CALCIUM 8.6 MG/DL (8.5-10.1); CHLORIDE 99 MMOL/L (99-107); GLUCOSE 118 MG/DL (70-104); MAGNESIUM 2.2 MG/DL (1.5-2.4); PHOSPHORUS 4.2 MG/DL (2.3-4.5); POTASSIUM 4.3 MMOL/L (3.5-5.1); SODIUM 138 MMOL/L (135-145); TOTAL CARBON DIOXIDE 36.3 MMOL/L (24-32); TOTAL PROTEIN 6.5 G/DL (6.4-8.2); eGFR > 90 ML/MIN
[2017-12-07 03:47] LABS: BASOPHILS % (AUTO) 0 % (0-1); EOSINOPHILS # (AUTO) 0.3 X10'3 (0-0.9); EOSINOPHILS % (AUTO) 2.3 % (0-6); HEMATOCRIT 31.2 % (42.0-52.0); HEMOGLOBIN 10.5 g/dl (14.0-17.9); LYMPHOCYTES # (AUTO) 1.4 X10'3 (1.1-4.8); LYMPHOCYTES % (AUTO) 10.8 % (21-51); MEAN CORPUSCULAR HEMOGLOBIN 32.2 PG (27.0-31.0); MEAN CORPUSCULAR HGB CONC 33.7 % (33.0-36.5); MEAN CORPUSCULAR VOLUME 95.6 FL (78-98); MEAN PLATELET VOLUME 8.3 FL (7.4-10.4); MONOCYTES # (AUTO) 0.7 X10'3 (0-0.9); MONOCYTES % (AUTO) 5.7 % (2-12); NEUTROPHILS # (AUTO) 10.7 X10'3 (1.8-7.7); NEUTROPHILS % (AUTO) 81.2 % (42-75); PLATELET COUNT 291 X10'3 (140-440); RED BLOOD COUNT 3.26 X10'6 (4.70-6.10); RED CELL DISTRIBUTION WIDTH 13.3 % (11.5-14.5); WHITE BLOOD COUNT 13.1 X10'3 (4.5-11.0)
[2017-12-07 04:15] LABS: ABG BASE EXCESS 9.4 mmol/L (-2.0-3.0); ABG HCO3 35.8 mmol/L (22.0-26.0); ABG OXYGEN SATURATION 94.8 % (95-98); ABG PCO2 (T) 58.3 mmHg (35.0-48.0); ABG PH (T) 7.407 (7.350-7.450); ABG PO2 (T) 73.4 mmHg (83-108); ALLEN'S TEST Positive; FCOHb 0.1 % (0.5-1.5); FMetHb 0.3 % (0.3-1.12); FO2Hb 94.4 % (94-100); MINUTE VOLUME 9 L/min; PATIENT TEMPERATURE 37.1; PEEP 5 cm H2O; RESPIRATORY RATE 12 b/min; RESPIRATORY RATE (OBSERVED) 17 b/min; TIDAL VOLUME 581 mL; TOTAL HEMOGLOBIN 11.5 G/dl (14.0-18.0)
[2017-12-07 05:38] LABS: TOTAL CELLS COUNTED 100
[2017-12-07 05:39] LABS: ANISOCYTOSIS FEW; PLATELET ESTIMATE NORMAL; POLYCHROMASIA FEW; TOXIC GRANULATION 1+
[2017-12-07] MEDS: LACTOBACILLUS RHAMNOSUS GG 15 billion unit sprinkle caps PO SCH ×2 (07:30→12:28)
[2017-12-07] MEDS: montelukast 10mg tablet PO SCH ×2 (08:00→12:29)
[2017-12-07] MEDS: potassium Cl oral solution 20 MEQ/15 ML PO SCH ×2 (08:00→12:29)
[2017-12-07] MEDS: pantoprazole 40 MG vial IV SCH (08:25)
[2017-12-07] MEDS: diatr meglu/diatrizoate 30ml oral sol.-(3 dose) bottle PO SCH ×2 (08:25→12:19)
[2017-12-07] MEDS: enoxaparin 40mg/0.4ml syringe SUBCUT SCH (08:26)
[2017-12-07] MEDS: CefTRIAXone 2gm/NS 100ml IVPB 100 ML IV SCH (08:31)
[2017-12-07] MEDS: K, MAG and/or Phos replacement - Verify level? MC SCH (08:34)
[2017-12-07] MEDS ORDERED: iohexol 300mg/ml 100ml inj. ONE (09:42)
[2017-12-07] MEDS: insulin regular, human vial - multi-dose SQ SCH ×2 (14:16→20:16)
[2017-12-07] MEDS: emollient combination-Eucerin 250 ML LOTION TP SCH (20:00)
[2017-12-07] MEDS: Insulin Detemir pen SQ SCH (20:18)
[2017-12-08] VITALS (24 sets, daily range): BP systolic 99–170; BP diastolic 53–93
[2017-12-08] MEDS: mineral oil/petrolatum ophthal oint EACHEYE SCH ×4 (02:00→20:00)
[2017-12-08 03:51] LABS: ABG BASE EXCESS 10.2 mmol/L (-2.0-3.0); ABG HCO3 35.5 mmol/L (22.0-26.0); ABG OXYGEN SATURATION 95.8 % (95-98); ABG PCO2 (T) 52.2 mmHg (35.0-48.0); ABG PH (T) 7.452 (7.350-7.450); ABG PO2 (T) 77.6 mmHg (83-108); ALLEN'S TEST Positive; FCOHb 0.3 % (0.5-1.5); FO2Hb 95.5 % (94-100); MINUTE VOLUME 9 L/min; PATIENT TEMPERATURE 37.5; PEEP 5 cm H2O; RESPIRATORY RATE 12 b/min; RESPIRATORY RATE (OBSERVED) 16 b/min; TIDAL VOLUME 637 mL; TOTAL HEMOGLOBIN 11.4 G/dl (14.0-18.0)
[2017-12-08 03:53] LABS: BASOPHILS % (AUTO) 0.3 % (0-1); EOSINOPHILS # (AUTO) 0.4 X10'3 (0-0.9); EOSINOPHILS % (AUTO) 2.8 % (0-6); HEMATOCRIT 32.4 % (42.0-52.0); HEMOGLOBIN 10.6 g/dl (14.0-17.9); LYMPHOCYTES # (AUTO) 1.2 X10'3 (1.1-4.8); LYMPHOCYTES % (AUTO) 9.2 % (21-51); MEAN CORPUSCULAR HEMOGLOBIN 31.7 PG (27.0-31.0); MEAN CORPUSCULAR HGB CONC 32.8 % (33.0-36.5); MEAN CORPUSCULAR VOLUME 96.7 FL (78-98); MEAN PLATELET VOLUME 7.9 FL (7.4-10.4); MONOCYTES # (AUTO) 0.9 X10'3 (0-0.9); MONOCYTES % (AUTO) 6.9 % (2-12); NEUTROPHILS # (AUTO) 10.8 X10'3 (1.8-7.7); NEUTROPHILS % (AUTO) 80.8 % (42-75); PLATELET COUNT 296 X10'3 (140-440); RED BLOOD COUNT 3.35 X10'6 (4.70-6.10); RED CELL DISTRIBUTION WIDTH 14.5 % (11.5-14.5); WHITE BLOOD COUNT 13.3 X10'3 (4.5-11.0)
[2017-12-08 04:03] LABS: PARTIAL THROMBOPLASTIN TIME 29 SECONDS (22-32); PROTHROMBIN TIME 10.7 SECONDS (9.0-12.0)
[2017-12-08 04:11] LABS: ALANINE AMINOTRANSFERASE 16 U/L (12-78); ALBUMIN 1.9 G/DL (3.4-5.0); ALBUMIN/GLOBULIN RATIO 0.4 (1.1-1.5); ALKALINE PHOSPHATASE 52 IU/L (46-116); ANION GAP 5 (8-16); ASPARTATE AMINO TRANSFERASE 17 U/L (10-37); BILIRUBIN,TOTAL 0.2 MG/DL (0.1-1.0); BLOOD UREA NITROGEN 26 MG/DL (7-18); CALCIUM 8.7 MG/DL (8.5-10.1); CHLORIDE 98 MMOL/L (99-107); GLUCOSE 127 MG/DL (70-104); MAGNESIUM 2.2 MG/DL (1.5-2.4); PHOSPHORUS 3.4 MG/DL (2.3-4.5); POTASSIUM 4.4 MMOL/L (3.5-5.1); SODIUM 139 MMOL/L (135-145); TOTAL CARBON DIOXIDE 35.6 MMOL/L (24-32); TOTAL PROTEIN 6.6 G/DL (6.4-8.2); eGFR > 90 ML/MIN
[2017-12-08] MEDS: K, MAG and/or Phos replacement - Verify level? MC SCH (08:00)
[2017-12-08] MEDS: methylnaltrexone br 12mg/0.6ml inj***SubQ only SQ SCH (08:33)
[2017-12-08] MEDS: pantoprazole 40 MG vial IV SCH (08:33)
[2017-12-08] MEDS: CefTRIAXone 2gm/NS 100ml IVPB 100 ML IV SCH (08:34)
[2017-12-08] MEDS: emollient combination-Eucerin 250 ML LOTION TP SCH (08:35)
[2017-12-08] MEDS: enoxaparin 40mg/0.4ml syringe SUBCUT SCH (08:35)
[2017-12-08] MEDS: potassium Cl oral solution 20 MEQ/15 ML PO SCH (08:35)
[2017-12-08] MEDS: montelukast 10mg tablet PO SCH (08:35)
[2017-12-08] MEDS: LACTOBACILLUS RHAMNOSUS GG 15 billion unit sprinkle caps PO SCH (08:36)
[2017-12-08] MEDS: insulin regular, human vial - multi-dose SQ SCH (08:38)
[2017-12-08] MEDS: dexmedetomidin/NS 400mcg/100ml 100 ML IV SCH (20:35)
[2017-12-08] MEDS: Insulin Detemir pen SQ SCH (21:00)
[2017-12-09] VITALS (24 sets, daily range): BP systolic 105–157; BP diastolic 47–75
[2017-12-09] MEDS: mineral oil/petrolatum ophthal oint EACHEYE SCH ×4 (02:00→20:00)
[2017-12-09 03:13] LABS: BASOPHILS % (AUTO) 0.3 % (0-1); EOSINOPHILS # (AUTO) 0.3 X10'3 (0-0.9); EOSINOPHILS % (AUTO) 3.4 % (0-6); HEMATOCRIT 32.5 % (42.0-52.0); HEMOGLOBIN 10.6 g/dl (14.0-17.9); LYMPHOCYTES # (AUTO) 1.1 X10'3 (1.1-4.8); LYMPHOCYTES % (AUTO) 11.1 % (21-51); MEAN CORPUSCULAR HEMOGLOBIN 31.9 PG (27.0-31.0); MEAN CORPUSCULAR HGB CONC 32.7 % (33.0-36.5); MEAN CORPUSCULAR VOLUME 97.7 FL (78-98); MEAN PLATELET VOLUME 7.1 FL (7.4-10.4); MONOCYTES # (AUTO) 0.6 X10'3 (0-0.9); MONOCYTES % (AUTO) 6.3 % (2-12); NEUTROPHILS % (AUTO) 78.9 % (42-75); PLATELET COUNT 306 X10'3 (140-440); RED BLOOD COUNT 3.33 X10'6 (4.70-6.10); RED CELL DISTRIBUTION WIDTH 14.5 % (11.5-14.5); WHITE BLOOD COUNT 10.1 X10'3 (4.5-11.0)
[2017-12-09 03:27] LABS: ALANINE AMINOTRANSFERASE 17 U/L (12-78); ALBUMIN 1.9 G/DL (3.4-5.0); ALBUMIN/GLOBULIN RATIO 0.4 (1.1-1.5); ALKALINE PHOSPHATASE 53 IU/L (46-116); ANION GAP 1 (8-16); ASPARTATE AMINO TRANSFERASE 15 U/L (10-37); BILIRUBIN,TOTAL 0.3 MG/DL (0.1-1.0); BLOOD UREA NITROGEN 20 MG/DL (7-18); CALCIUM 8.8 MG/DL (8.5-10.1); CHLORIDE 102 MMOL/L (99-107); GLUCOSE 99 MG/DL (70-104); MAGNESIUM 2.3 MG/DL (1.5-2.4); POTASSIUM 4.3 MMOL/L (3.5-5.1); SODIUM 141 MMOL/L (135-145); TOTAL CARBON DIOXIDE 37.8 MMOL/L (24-32); TOTAL PROTEIN 6.5 G/DL (6.4-8.2); eGFR > 90 ML/MIN
[2017-12-09 03:37] LABS: PARTIAL THROMBOPLASTIN TIME 28 SECONDS (22-32); PROTHROMBIN TIME 10.7 SECONDS (9.0-12.0)
[2017-12-09] MEDS: LACTOBACILLUS RHAMNOSUS GG 15 billion unit sprinkle caps PO SCH (07:55)
[2017-12-09] MEDS: CefTRIAXone 2gm/NS 100ml IVPB 100 ML IV SCH (07:57)
[2017-12-09] MEDS: enoxaparin 40mg/0.4ml syringe SUBCUT SCH (07:57)
[2017-12-09] MEDS: montelukast 10mg tablet PO SCH (07:59)
[2017-12-09] MEDS: K, MAG and/or Phos replacement - Verify level? MC SCH (08:00)
[2017-12-09] MEDS: emollient combination-Eucerin 250 ML LOTION TP SCH (08:00)
[2017-12-09] MEDS: potassium Cl oral solution 20 MEQ/15 ML PO SCH (08:03)
[2017-12-09] MEDS: Insulin Detemir pen SQ SCH (21:00)
[2017-12-10] VITALS (13 sets, daily range): BP systolic 106–144; BP diastolic 58–72
[2017-12-10] MEDS: mineral oil/petrolatum ophthal oint EACHEYE SCH ×4 (02:00→19:29)
[2017-12-10 04:14] LABS: BASOPHILS # (AUTO) 0.1 X10'3 (0-0.2); BASOPHILS % (AUTO) 0.7 % (0-1); EOSINOPHILS # (AUTO) 0.3 X10'3 (0-0.9); EOSINOPHILS % (AUTO) 2.6 % (0-6); HEMATOCRIT 36.5 % (42.0-52.0); HEMOGLOBIN 11.9 g/dl (14.0-17.9); LYMPHOCYTES # (AUTO) 0.9 X10'3 (1.1-4.8); LYMPHOCYTES % (AUTO) 6.9 % (21-51); MEAN CORPUSCULAR HGB CONC 32.6 % (33.0-36.5); MEAN CORPUSCULAR VOLUME 98.2 FL (78-98); MEAN PLATELET VOLUME 7.1 FL (7.4-10.4); MONOCYTES # (AUTO) 0.6 X10'3 (0-0.9); MONOCYTES % (AUTO) 5.2 % (2-12); NEUTROPHILS # (AUTO) 10.4 X10'3 (1.8-7.7); NEUTROPHILS % (AUTO) 84.6 % (42-75); PLATELET COUNT 312 X10'3 (140-440); RED BLOOD COUNT 3.72 X10'6 (4.70-6.10); RED CELL DISTRIBUTION WIDTH 14.5 % (11.5-14.5); WHITE BLOOD COUNT 12.3 X10'3 (4.5-11.0)
[2017-12-10 04:27] LABS: INR 1.1 INR; PARTIAL THROMBOPLASTIN TIME 27 SECONDS (22-32); PROTHROMBIN TIME 11.1 SECONDS (9.0-12.0)
[2017-12-10 04:29] LABS: ALANINE AMINOTRANSFERASE 17 U/L (12-78); ALBUMIN 2.1 G/DL (3.4-5.0); ALBUMIN/GLOBULIN RATIO 0.4 (1.1-1.5); ALKALINE PHOSPHATASE 62 IU/L (46-116); ANION GAP 3 (8-16); ASPARTATE AMINO TRANSFERASE 15 U/L (10-37); BILIRUBIN,TOTAL 0.3 MG/DL (0.1-1.0); BLOOD UREA NITROGEN 20 MG/DL (7-18); CALCIUM 8.6 MG/DL (8.5-10.1); CHLORIDE 101 MMOL/L (99-107); GLUCOSE 121 MG/DL (70-104); MAGNESIUM 2.4 MG/DL (1.5-2.4); PHOSPHORUS 3.4 MG/DL (2.3-4.5); POTASSIUM 4.7 MMOL/L (3.5-5.1); PREALBUMIN 14.3 MG/DL (19-36); SODIUM 142 MMOL/L (135-145); TOTAL CARBON DIOXIDE 37.6 MMOL/L (24-32); TOTAL PROTEIN 6.9 G/DL (6.4-8.2); eGFR > 90 ML/MIN
[2017-12-10] MEDS: pantoprazole 40mg Tablet.DR PO SCH (07:31)
[2017-12-10] MEDS: LACTOBACILLUS RHAMNOSUS GG 15 billion unit sprinkle caps PO SCH (07:31)
[2017-12-10] MEDS: enoxaparin 40mg/0.4ml syringe SUBCUT SCH (07:31)
[2017-12-10] MEDS: CefTRIAXone 2gm/NS 100ml IVPB 100 ML IV SCH (07:31)
[2017-12-10] MEDS: montelukast 10mg tablet PO SCH (07:31)
[2017-12-10] MEDS: methylnaltrexone br 12mg/0.6ml inj***SubQ only SQ SCH (07:32)
[2017-12-10] MEDS: potassium Cl oral solution 20 MEQ/15 ML PO SCH (07:32)
[2017-12-10] MEDS: K, MAG and/or Phos replacement - Verify level? MC SCH (08:00)
[2017-12-10] MEDS: emollient combination-Eucerin 250 ML LOTION TP SCH (08:10)
[2017-12-10] MEDS: ipratropium/albuterol 3ml nebule NEB PRN (16:27)
[2017-12-10] MEDS: Insulin Detemir pen SQ SCH (20:41)
[2017-12-11] MEDS: mineral oil/petrolatum ophthal oint EACHEYE SCH ×4 (01:16→19:29)
[2017-12-11] MEDS: ipratropium/albuterol 3ml nebule NEB PRN ×3 (02:58→18:39)
[2017-12-11 03:00] VITALS: BP 138/70
[2017-12-11 04:06] LABS: BASOPHILS % (AUTO) 0.2 % (0-1); EOSINOPHILS # (AUTO) 0.3 X10'3 (0-0.9); EOSINOPHILS % (AUTO) 2.2 % (0-6); HEMATOCRIT 33.1 % (42.0-52.0); HEMOGLOBIN 10.9 g/dl (14.0-17.9); LYMPHOCYTES # (AUTO) 1.1 X10'3 (1.1-4.8); LYMPHOCYTES % (AUTO) 9.4 % (21-51); MEAN CORPUSCULAR HEMOGLOBIN 31.8 PG (27.0-31.0); MEAN CORPUSCULAR HGB CONC 32.8 % (33.0-36.5); MEAN CORPUSCULAR VOLUME 96.9 FL (78-98); MEAN PLATELET VOLUME 7.2 FL (7.4-10.4); MONOCYTES # (AUTO) 0.7 X10'3 (0-0.9); MONOCYTES % (AUTO) 5.5 % (2-12); NEUTROPHILS # (AUTO) 10.1 X10'3 (1.8-7.7); NEUTROPHILS % (AUTO) 82.7 % (42-75); PLATELET COUNT 297 X10'3 (140-440); RED BLOOD COUNT 3.42 X10'6 (4.70-6.10); RED CELL DISTRIBUTION WIDTH 14.5 % (11.5-14.5); WHITE BLOOD COUNT 12.2 X10'3 (4.5-11.0)
[2017-12-11 04:25] LABS: INR 1.1 INR; PARTIAL THROMBOPLASTIN TIME 28 SECONDS (22-32); PROTHROMBIN TIME 11.1 SECONDS (9.0-12.0)
[2017-12-11 04:30] LABS: ALANINE AMINOTRANSFERASE 16 U/L (12-78); ALBUMIN/GLOBULIN RATIO 0.4 (1.1-1.5); ALKALINE PHOSPHATASE 61 IU/L (46-116); ANION GAP 2 (8-16); ASPARTATE AMINO TRANSFERASE 14 U/L (10-37); BILIRUBIN,TOTAL 0.3 MG/DL (0.1-1.0); BLOOD UREA NITROGEN 17 MG/DL (7-18); BUN/CREATININE RATIO 42.5 (5.4-32.0); CALCIUM 8.5 MG/DL (8.5-10.1); CHLORIDE 101 MMOL/L (99-107); GLUCOSE 105 MG/DL (70-104); MAGNESIUM 2.2 MG/DL (1.5-2.4); PHOSPHORUS 2.4 MG/DL (2.3-4.5); SODIUM 142 MMOL/L (135-145); TOTAL CARBON DIOXIDE 38.7 MMOL/L (24-32); TOTAL PROTEIN 6.5 G/DL (6.4-8.2); eGFR > 90 ML/MIN
[2017-12-11] MEDS: K, MAG and/or Phos replacement - Verify level? MC SCH (06:19)
[2017-12-11 07:00] VITALS: BP 121/63
[2017-12-11] MEDS: LACTOBACILLUS RHAMNOSUS GG 15 billion unit sprinkle caps PO SCH (07:30)
[2017-12-11] MEDS: montelukast 10mg tablet PO SCH (08:15)
[2017-12-11] MEDS: pantoprazole 40mg Tablet.DR PO SCH (08:15)
[2017-12-11] MEDS: enoxaparin 40mg/0.4ml syringe SUBCUT SCH (08:16)
[2017-12-11] MEDS: potassium Cl oral solution 20 MEQ/15 ML PO SCH (08:17)
[2017-12-11] MEDS: CefTRIAXone 2gm/NS 100ml IVPB 100 ML IV SCH (08:18)
[2017-12-11] MEDS: emollient combination-Eucerin 250 ML LOTION TP SCH (08:19)
[2017-12-11 11:00] VITALS: BP 135/60
[2017-12-11 15:00] VITALS: BP 128/66
[2017-12-11 18:00] VITALS: BP 118/64
[2017-12-11] MEDS: Protein Shake (high protein) 240ml (8oz) cup PO SCH (18:00)
[2017-12-11] MEDS: Insulin Detemir pen SQ SCH (19:18)
[2017-12-11 22:00] VITALS: BP 131/79
[2017-12-12 02:00] VITALS: BP 128/58
[2017-12-12] MEDS: mineral oil/petrolatum ophthal oint EACHEYE SCH ×4 (02:00→20:15)
[2017-12-12 05:26] LABS: BASOPHILS # (AUTO) 0.1 X10'3 (0-0.2); BASOPHILS % (AUTO) 0.6 % (0-1); EOSINOPHILS # (AUTO) 0.3 X10'3 (0-0.9); EOSINOPHILS % (AUTO) 3.2 % (0-6); HEMATOCRIT 31.4 % (42.0-52.0); HEMOGLOBIN 10.5 g/dl (14.0-17.9); LYMPHOCYTES % (AUTO) 11.1 % (21-51); MEAN CORPUSCULAR HEMOGLOBIN 31.8 PG (27.0-31.0); MEAN CORPUSCULAR HGB CONC 33.5 % (33.0-36.5); MEAN CORPUSCULAR VOLUME 94.8 FL (78-98); MEAN PLATELET VOLUME 7.2 FL (7.4-10.4); MONOCYTES # (AUTO) 0.6 X10'3 (0-0.9); MONOCYTES % (AUTO) 6.6 % (2-12); NEUTROPHILS # (AUTO) 6.8 X10'3 (1.8-7.7); NEUTROPHILS % (AUTO) 78.5 % (42-75); PLATELET COUNT 282 X10'3 (140-440); RED BLOOD COUNT 3.31 X10'6 (4.70-6.10); RED CELL DISTRIBUTION WIDTH 14.2 % (11.5-14.5); WHITE BLOOD COUNT 8.7 X10'3 (4.5-11.0)
[2017-12-12 05:31] LABS: INR 1.1 INR; PARTIAL THROMBOPLASTIN TIME 28 SECONDS (22-32); PROTHROMBIN TIME 10.9 SECONDS (9.0-12.0)
[2017-12-12 05:36] LABS: ALANINE AMINOTRANSFERASE 16 U/L (12-78); ALBUMIN/GLOBULIN RATIO 0.5 (1.1-1.5); ALKALINE PHOSPHATASE 58 IU/L (46-116); ANION GAP 4 (8-16); ASPARTATE AMINO TRANSFERASE 15 U/L (10-37); BILIRUBIN,TOTAL 0.3 MG/DL (0.1-1.0); BLOOD UREA NITROGEN 14 MG/DL (7-18); CALCIUM 8.6 MG/DL (8.5-10.1); CHLORIDE 100 MMOL/L (99-107); GLUCOSE 104 MG/DL (70-104); MAGNESIUM 2.2 MG/DL (1.5-2.4); PHOSPHORUS 2.4 MG/DL (2.3-4.5); SODIUM 141 MMOL/L (135-145); TOTAL CARBON DIOXIDE 36.7 MMOL/L (24-32); TOTAL PROTEIN 6.3 G/DL (6.4-8.2); eGFR > 90 ML/MIN
[2017-12-12 07:00] VITALS: BP 130/66
[2017-12-12] MEDS: CefTRIAXone 2gm/NS 100ml IVPB 100 ML IV SCH (07:57)
[2017-12-12] MEDS: enoxaparin 40mg/0.4ml syringe SUBCUT SCH (07:58)
[2017-12-12] MEDS: LACTOBACILLUS RHAMNOSUS GG 15 billion unit sprinkle caps PO SCH (07:58)
[2017-12-12] MEDS: montelukast 10mg tablet PO SCH (07:58)
[2017-12-12] MEDS: pantoprazole 40mg Tablet.DR PO SCH (07:58)
[2017-12-12] MEDS: Protein Shake (high protein) 240ml (8oz) cup PO SCH ×3 (08:00→18:00)
[2017-12-12] MEDS: methylnaltrexone br 12mg/0.6ml inj***SubQ only SQ SCH (08:00)
[2017-12-12] MEDS: K, MAG and/or Phos replacement - Verify level? MC SCH (08:00)
[2017-12-12] MEDS: emollient combination-Eucerin 250 ML LOTION TP SCH (08:36)
[2017-12-12] MEDS: potassium Cl oral solution 20 MEQ/15 ML PO SCH (09:19)
[2017-12-12 11:00] VITALS: BP 142/69
[2017-12-12 15:00] VITALS: BP 129/66
[2017-12-12 18:00] VITALS: BP 137/71
[2017-12-12] MEDS: Insulin Detemir pen SQ SCH (21:00)
[2017-12-12 23:00] VITALS: BP 135/74
[2017-12-13] MEDS: ipratropium/albuterol 3ml nebule NEB PRN (01:08)
[2017-12-13] MEDS: mineral oil/petrolatum ophthal oint EACHEYE SCH ×4 (02:07→21:56)
[2017-12-13] MEDS: ipratropium/albuterol 3ml nebule NEB SCH ×6 (02:52→23:01)
[2017-12-13 03:00] VITALS: BP 117/75
[2017-12-13 05:10] LABS: BASOPHILS # (AUTO) 0.1 X10'3 (0-0.2); BASOPHILS % (AUTO) 0.9 % (0-1); EOSINOPHILS # (AUTO) 0.3 X10'3 (0-0.9); EOSINOPHILS % (AUTO) 3.3 % (0-6); HEMATOCRIT 32.6 % (42.0-52.0); HEMOGLOBIN 10.8 g/dl (14.0-17.9); LYMPHOCYTES # (AUTO) 0.9 X10'3 (1.1-4.8); MEAN CORPUSCULAR HEMOGLOBIN 32.1 PG (27.0-31.0); MEAN CORPUSCULAR HGB CONC 33.3 % (33.0-36.5); MEAN CORPUSCULAR VOLUME 96.6 FL (78-98); MONOCYTES # (AUTO) 0.4 X10'3 (0-0.9); MONOCYTES % (AUTO) 5.5 % (2-12); NEUTROPHILS # (AUTO) 6.2 X10'3 (1.8-7.7); NEUTROPHILS % (AUTO) 79.3 % (42-75); PLATELET COUNT 272 X10'3 (140-440); RED BLOOD COUNT 3.37 X10'6 (4.70-6.10); RED CELL DISTRIBUTION WIDTH 14.1 % (11.5-14.5); WHITE BLOOD COUNT 7.9 X10'3 (4.5-11.0)
[2017-12-13 05:20] LABS: PARTIAL THROMBOPLASTIN TIME 27 SECONDS (22-32); PROTHROMBIN TIME 10.8 SECONDS (9.0-12.0)
[2017-12-13 05:37] LABS: ALANINE AMINOTRANSFERASE 18 U/L (12-78); ALBUMIN 2.2 G/DL (3.4-5.0); ALBUMIN/GLOBULIN RATIO 0.5 (1.1-1.5); ALKALINE PHOSPHATASE 63 IU/L (46-116); ANION GAP 3 (8-16); ASPARTATE AMINO TRANSFERASE 14 U/L (10-37); BILIRUBIN,TOTAL 0.3 MG/DL (0.1-1.0); BLOOD UREA NITROGEN 13 MG/DL (7-18); BUN/CREATININE RATIO 32.5 (5.4-32.0); CALCIUM 8.6 MG/DL (8.5-10.1); CHLORIDE 101 MMOL/L (99-107); GLUCOSE 116 MG/DL (70-104); MAGNESIUM 2.1 MG/DL (1.5-2.4); PHOSPHORUS 3.4 MG/DL (2.3-4.5); PREALBUMIN 13.8 MG/DL (19-36); SODIUM 142 MMOL/L (135-145); TOTAL CARBON DIOXIDE 38.1 MMOL/L (24-32); TOTAL PROTEIN 6.5 G/DL (6.4-8.2); eGFR > 90 ML/MIN
[2017-12-13] MEDS: K, MAG and/or Phos replacement - Verify level? MC SCH (06:21)
[2017-12-13 06:35] VITALS: BP 118/59
[2017-12-13] MEDS: Protein Shake (high protein) 240ml (8oz) cup PO SCH ×3 (08:00→18:00)
[2017-12-13] MEDS: potassium Cl oral solution 20 MEQ/15 ML PO SCH (08:00)
[2017-12-13] MEDS: pantoprazole 40mg Tablet.DR PO SCH (09:33)
[2017-12-13] MEDS: LACTOBACILLUS RHAMNOSUS GG 15 billion unit sprinkle caps PO SCH (09:33)
[2017-12-13] MEDS: montelukast 10mg tablet PO SCH (09:33)
[2017-12-13] MEDS: enoxaparin 40mg/0.4ml syringe SUBCUT SCH (09:34)
[2017-12-13] MEDS: emollient combination-Eucerin 250 ML LOTION TP SCH (09:35)
[2017-12-13] MEDS: CefTRIAXone 2gm/NS 100ml IVPB 100 ML IV SCH (09:35)
[2017-12-13] MEDS: insulin regular, human vial - multi-dose SQ SCH (09:39)
[2017-12-13 11:00] VITALS: BP 131/68
[2017-12-13] MEDS ORDERED: fluconazole-Diflucan 200mg/NS 100 ML IV SCH (11:20)
[2017-12-13 15:00] VITALS: BP 124/80
[2017-12-13 19:00] VITALS: BP 127/62
[2017-12-13] MEDS: Insulin Detemir pen SQ SCH (21:00)
[2017-12-13] MEDS: furosemide 20 MG/2 ML vial IV SCH (21:56)
[2017-12-13 23:00] VITALS: BP 126/66
[2017-12-14] VITALS (7 sets, daily range): BP systolic 117–135; BP diastolic 66–77
[2017-12-14] MEDS: mineral oil/petrolatum ophthal oint EACHEYE SCH ×4 (02:06→23:21)
[2017-12-14] MEDS: ipratropium/albuterol 3ml nebule NEB SCH ×6 (02:51→23:19)
[2017-12-14] MEDS ORDERED: LORazepam 2 mg/ml vial IV PRN (05:20)
[2017-12-14] MEDS: enoxaparin 40mg/0.4ml syringe SUBCUT SCH (07:25)
[2017-12-14] MEDS: CefTRIAXone 2gm/NS 100ml IVPB 100 ML IV SCH (07:26)
[2017-12-14] MEDS: furosemide 20 MG/2 ML vial IV SCH ×2 (07:27→23:08)
[2017-12-14] MEDS: methylnaltrexone br 12mg/0.6ml inj***SubQ only SQ SCH (07:27)
[2017-12-14] MEDS: pantoprazole 40mg Tablet.DR PO SCH (07:43)
[2017-12-14] MEDS: montelukast 10mg tablet PO SCH (07:43)
[2017-12-14] MEDS: LACTOBACILLUS RHAMNOSUS GG 15 billion unit sprinkle caps PO SCH (07:43)
[2017-12-14] MEDS: emollient combination-Eucerin 250 ML LOTION TP SCH (07:45)
[2017-12-14] MEDS: Protein Shake (high protein) 240ml (8oz) cup PO SCH ×3 (07:45→17:47)
[2017-12-14] MEDS: potassium Cl oral solution 20 MEQ/15 ML PO SCH (07:59)
[2017-12-14] MEDS: K, MAG and/or Phos replacement - Verify level? MC SCH (08:00)
[2017-12-14 12:57] LABS: BASOPHILS % (AUTO) 0.5 % (0-1); EOSINOPHILS # (AUTO) 0.2 X10'3 (0-0.9); EOSINOPHILS % (AUTO) 3.4 % (0-6); HEMATOCRIT 33.3 % (42.0-52.0); HEMOGLOBIN 11.2 g/dl (14.0-17.9); LYMPHOCYTES % (AUTO) 13.5 % (21-51); MEAN CORPUSCULAR HEMOGLOBIN 32.4 PG (27.0-31.0); MEAN CORPUSCULAR HGB CONC 33.8 % (33.0-36.5); MEAN CORPUSCULAR VOLUME 95.9 FL (78-98); MEAN PLATELET VOLUME 7.1 FL (7.4-10.4); MONOCYTES # (AUTO) 0.3 X10'3 (0-0.9); MONOCYTES % (AUTO) 4.8 % (2-12); NEUTROPHILS # (AUTO) 5.6 X10'3 (1.8-7.7); NEUTROPHILS % (AUTO) 77.8 % (42-75); PLATELET COUNT 255 X10'3 (140-440); RED BLOOD COUNT 3.47 X10'6 (4.70-6.10); RED CELL DISTRIBUTION WIDTH 14.5 % (11.5-14.5); WHITE BLOOD COUNT 7.2 X10'3 (4.5-11.0)
[2017-12-14 13:11] LABS: ALANINE AMINOTRANSFERASE 13 U/L (12-78); ALBUMIN 2.2 G/DL (3.4-5.0); ALBUMIN/GLOBULIN RATIO 0.5 (1.1-1.5); ALKALINE PHOSPHATASE 65 IU/L (46-116); ANION GAP 1 (8-16); ASPARTATE AMINO TRANSFERASE 18 U/L (10-37); BILIRUBIN,TOTAL 0.3 MG/DL (0.1-1.0); BLOOD UREA NITROGEN 9 MG/DL (7-18); BUN/CREATININE RATIO 22.5 (5.4-32.0); CALCIUM 8.5 MG/DL (8.5-10.1); CHLORIDE 98 MMOL/L (99-107); GLUCOSE 143 MG/DL (70-104); SODIUM 139 MMOL/L (135-145); TOTAL PROTEIN 6.6 G/DL (6.4-8.2); eGFR > 90 ML/MIN
[2017-12-14 13:18] LABS: TOTAL CARBON DIOXIDE 40.2 MMOL/L (24-32)
[2017-12-14] MEDS: Insulin Detemir pen SQ SCH (21:00)
[2017-12-15 02:00] VITALS: BP 123/66
[2017-12-15] MEDS: mineral oil/petrolatum ophthal oint EACHEYE SCH ×3 (02:00→13:53)
[2017-12-15] MEDS: ipratropium/albuterol 3ml nebule NEB SCH ×3 (02:45→11:26)
[2017-12-15 06:00] VITALS: BP_DIAS 126
[2017-12-15 07:10] LABS: BASOPHILS # (AUTO) 0.1 X10'3 (0-0.2); BASOPHILS % (AUTO) 0.8 % (0-1); EOSINOPHILS # (AUTO) 0.4 X10'3 (0-0.9); EOSINOPHILS % (AUTO) 6.2 % (0-6); HEMATOCRIT 32.4 % (42.0-52.0); LYMPHOCYTES # (AUTO) 1.2 X10'3 (1.1-4.8); LYMPHOCYTES % (AUTO) 18.4 % (21-51); MEAN CORPUSCULAR HEMOGLOBIN 32.4 PG (27.0-31.0); MEAN CORPUSCULAR HGB CONC 33.9 % (33.0-36.5); MEAN CORPUSCULAR VOLUME 95.5 FL (78-98); MONOCYTES # (AUTO) 0.4 X10'3 (0-0.9); MONOCYTES % (AUTO) 6.8 % (2-12); NEUTROPHILS # (AUTO) 4.4 X10'3 (1.8-7.7); NEUTROPHILS % (AUTO) 67.8 % (42-75); PLATELET COUNT 252 X10'3 (140-440); RED BLOOD COUNT 3.39 X10'6 (4.70-6.10); RED CELL DISTRIBUTION WIDTH 14.1 % (11.5-14.5); WHITE BLOOD COUNT 6.4 X10'3 (4.5-11.0)
[2017-12-15] MEDS: LACTOBACILLUS RHAMNOSUS GG 15 billion unit sprinkle caps PO SCH (07:29)
[2017-12-15] MEDS: pantoprazole 40mg Tablet.DR PO SCH (07:30)
[2017-12-15] MEDS: furosemide 20 MG/2 ML vial IV SCH (07:30)
[2017-12-15] MEDS: montelukast 10mg tablet PO SCH (07:30)
[2017-12-15] MEDS: enoxaparin 40mg/0.4ml syringe SUBCUT SCH (07:30)
[2017-12-15] MEDS: potassium Cl oral solution 20 MEQ/15 ML PO SCH (07:31)
[2017-12-15 07:32] LABS: ALANINE AMINOTRANSFERASE 17 U/L (12-78); ALBUMIN 2.2 G/DL (3.4-5.0); ALBUMIN/GLOBULIN RATIO 0.5 (1.1-1.5); ALKALINE PHOSPHATASE 62 IU/L (46-116); ANION GAP 1 (8-16); ASPARTATE AMINO TRANSFERASE 14 U/L (10-37); BILIRUBIN,TOTAL 0.3 MG/DL (0.1-1.0); BLOOD UREA NITROGEN 11 MG/DL (7-18); CALCIUM 8.6 MG/DL (8.5-10.1); CHLORIDE 97 MMOL/L (99-107); GLUCOSE 108 MG/DL (70-104); POTASSIUM 3.6 MMOL/L (3.5-5.1); SODIUM 139 MMOL/L (135-145); TOTAL PROTEIN 6.5 G/DL (6.4-8.2); eGFR > 90 ML/MIN
[2017-12-15 07:34] LABS: TOTAL CARBON DIOXIDE 40.9 MMOL/L (24-32)
[2017-12-15] MEDS: emollient combination-Eucerin 250 ML LOTION TP SCH (07:46)
[2017-12-15] MEDS: K, MAG and/or Phos replacement - Verify level? MC SCH (08:00)
[2017-12-15] MEDS: Protein Shake (high protein) 240ml (8oz) cup PO SCH ×2 (08:44→12:53)
[2017-12-15 11:00] VITALS: BP 117/72
== END 2017-12-15 14:15 | DRG 870 ==
LOC: ER 11:41 → ICU 2S 13:37 → CMPBEDREQ 19:53 → ICU 2S 12-02 14:07 → PCU 3S 12-10 10:05
PROVIDERS: ADMIT Internal Medicine Critical Care Medicine; ATTEND Family Medicine
PROC: 5A1955Z Respiratory Ventilation, Greater than 96 Consecutive Hours (ICD-10-PCS; principal; 2017-11-29)
PROC: 0BH17EZ Insertion of Endotracheal Airway into Trachea, Via Natural or Artificial Opening (ICD-10-PCS; 2017-11-29)
PROC: 02HV33Z Insertion of Infusion Device into Superior Vena Cava, Percutaneous Approach (ICD-10-PCS; 2017-11-29)
PROC: B548ZZA Ultrasonography of Superior Vena Cava, Guidance (ICD-10-PCS; 2017-11-29)
PROC: 02HV33Z Insertion of Infusion Device into Superior Vena Cava, Percutaneous Approach (ICD-10-PCS; 2017-12-07)
DX: A41.9 Sepsis, unspecified organism (principal); J96.21 Acute and chronic respiratory failure with hypoxia; E43 Unspecified severe protein-calorie malnutrition; J13 Pneumonia due to Streptococcus pneumoniae; I95.9 Hypotension, unspecified; I50.9 Heart failure, unspecified; J44.0 Chronic obstructive pulmonary disease with (acute) lower respiratory infection; E87.1 Hypo-osmolality and hyponatremia; Z99.81 Dependence on supplemental oxygen; J44.1 Chronic obstructive pulmonary disease with (acute) exacerbation; R13.10 Dysphagia, unspecified; D64.9 Anemia, unspecified; E11.9 Type 2 diabetes mellitus without complications; R21 Rash and other nonspecific skin eruption; E78.00 Pure hypercholesterolemia, unspecified; G31.84 Mild cognitive impairment of uncertain or unknown etiology; I25.10 Atherosclerotic heart disease of native coronary artery without angina pectoris; K59.00 Constipation, unspecified; Z68.29 Body mass index [BMI] 29.0-29.9, adult; I25.2 Old myocardial infarction; Z88.0 Allergy status to penicillin; Z88.1 Allergy status to other antibiotic agents; Z79.899 Other long term (current) drug therapy; Z90.49 Acquired absence of other specified parts of digestive tract; Z90.89 Acquired absence of other organs; Z85.46 Personal history of malignant neoplasm of prostate; Z92.3 Personal history of irradiation; Z23 Encounter for immunization
CPT/HCPCS: 36415; 36556; 36569; 36600; 71045; 71250; 71260; 74177; 76937; 80053; 81003; 82803; 82810; 82948; 83036; 83605; 83735; 83880; 84100; 84134; 84145; 84443; 84484; 85018; 85025; 85379; 85610; 85730; 86480; 87040; 87070; 87077; 87186; 87502; 87503; 92616; 93005; 93306; 94002; 94003; 94640; 94667; 94668; 94760; 96374; 97110; 97116; 97162; 97530; 99291; A4333; A4649; A6212; A6213; A6250; A6257; A6258; A6449; C1751; C1758; C9113; J0696; J1100; J1450; J1650; J1815; J1940; J1956; J2020; J2212; J2250; J2930; J3010; J3490; J7030; Q9963; Q9967